=== PATIENT | female | born 1970 | race Caucasian/White ===

== ENCOUNTER 2020-06-07 01:41 | Inpatient (IN) | payer OTHER ==
[~2020-06-07] VITALS: Ht 188 cm; Wt 120.9 kg
[~2020-06-07 01:41] MED LIST: ABILIFY10 MG; CALCITRIOL0.5 MCG PO; CELEXA10 MG PO; CLONAZEPAM 0.50.5 M1 PO; LEVOTHYROXINE0.2 M1; NORCO 5-325 TA1 EACH PO; NORFLEX100 MG PO
[2020-06-07 01:47] VITALS: BP 149/108
[2020-06-07] MEDS ORDERED: CALCIUM CARBON500 MG PO (02:35)
[2020-06-07] MEDS ORDERED: METFORMIN HCL500 M3 PO (02:37)
[2020-06-07] MEDS ORDERED: LEVOTHYROXINE150 MC1 PO (02:40)
[2020-06-07] MEDS ORDERED: LISINOPRIL10 MG PO (02:40)
[2020-06-07 03:55] VITALS: BP 163/94
[2020-06-07 03:59] VITALS: BP 163/94
[2020-06-07 04:43] VITALS: BP 160/97
--- NOTE | 2020-06-07 07:52 | NUR ---
VSS-AFEBRILE. ALERT AND ORIENTED X 4, LUNGS CLEAR-ROOM AIR. NO C/O PAIN. TONGUE REMAINS SLIGHTLY SWOLLEN ON LEFT SIDE, NOT INTERFERING WITH BREATHING OR SWALLOWING. REPORTED ANXIETY ATTACK ON ARRIVAL TO UNIT, ATIVAN ORDERED AND ADMINISTERED, SYMPTOMS SUBSIDED. OOB AD ARINA-STEADY ON FEET. CALLS APPROPRIATELY FOR ANY NEEDED ASSISTANCE.
[2020-06-07 08:50] VITALS: BP 134/90
--- NOTE | 2020-06-07 11:05 | NUR ---
PT ADMITTED RELATED TO ANGIOEDEMA AND TACHYCARDIA. CM REVIEWED CHART AND SPOKE WITH CARE TEAM. CM MET WITH PT AT BEDSIDE THIS DAY. PT APPEARED TO BE A&O X4. CM ROLE INTRODUCED. PT INDICATED SHE RESIDES IN A HOUSE WITH HER BOYFRIEND. PT INDICATED THERE ARE 14 STEPS IN TOTAL TO NAVIGATE AT THE HOME. 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 PT INDICATED NO DME OR HH HX. PT INDICATED HER PCP IS DR. SAVAGE TINOCO AT [facility]. PT PLANS TO RETURN HOME TO SELF CARE ONCE MEDICALLY STABLE. ANTICIPATED DC HOME TOMORROW.
--- NOTE | 2020-06-07 12:50 | NUR ---
ASSUMED CARE OF PT AT 0700 THIS MORNING. PT WAS A/OX4, LUNGS CLEAR, SKIN INTACT W/D/P, EYES PERRLA, SWELLING OF THE TONGUE IS REDUCED AND NO SPEACH ISSUES. PT IS WANTING TO LEAVE THE HOSPITAL [facility]. HCP SHAW HAS BEEN NOTIFIED AND STATED SHE HAS SPOKE WITH THE PT AND INFORMED HER THAT SHE WILL BE LEAVING AMA. PT IS WILLING TO LEAVE AMA AND HAS SIGNED THE AMA DOCUMENT. PT LEFT THE ROOM UNDER OWN POWER. ASSESSMENT WAS OTHERWISE UNREMARKABLE. IV HAS BEEN DC'D.
== END 2020-06-07 12:45 | disposition home or self-care (01) | DRG 916 ==
LOC: ER 01:41 → EROBS 03:12 → 4W 03:12
PROVIDERS: ADMIT Hospitalist; ATTEND Hospitalist
DX: T78.3XXA Angioneurotic edema, initial encounter (principal); F32.9 Major depressive disorder, single episode, unspecified; I10 Essential (primary) hypertension; F41.9 Anxiety disorder, unspecified; F17.210 Nicotine dependence, cigarettes, uncomplicated; E11.9 Type 2 diabetes mellitus without complications; E03.9 Hypothyroidism, unspecified; Z53.29 Procedure and treatment not carried out because of patient's decision for other reasons; Z79.899 Other long term (current) drug therapy
CPT/HCPCS: 10045